=== PATIENT | female | born 1995 | race Asian ===

== ENCOUNTER 2021-12-10 22:44 | Emergency (ER) | payer OTHER ==
[~2021-12-10] VITALS: Ht 149.9 cm; Wt 52.7 kg
[2021-12-10] MEDS ORDERED: RIFA30CA PO (22:57)
[2021-12-10 23:40] LABS: HEMATOCRIT 38.1 % (36.0-47.0); HEMOGLOBIN 12.6 g/dl (12.0-15.5); MEAN CORPUSCULAR HEMOGLOBIN 31.1 pg (27.0-33.0); MEAN CORPUSCULAR HGB CONC 33.1 g/dl (32.0-36.5); MEAN CORPUSCULAR VOLUME 94.1 fl (80.0-96.0); PLATELET COUNT, AUTOMATED 338 10^3/uL (150-450); RED BLOOD COUNT 4.05 10^6/uL (4.00-5.40)
[2021-12-11 00:07] LABS: HCG, SERUM QUALITATIVE NEGATIVE (NEGATIVE)
[2021-12-11 00:08] LABS: AMPHETAMINES LEVEL URINE NEGATIVE (NEGATIVE); BARBITURATES URINE NEGATIVE (NEGATIVE); BENZODIAZEPINES URINE NEGATIVE (NEGATIVE); CANNABINOIDS URINE NEGATIVE (NEGATIVE); COCAINE METABOLITE URINE NEGATIVE (NEGATIVE); METHADONE URINE NEGATIVE (NEGATIVE); OPIATES URINE NEGATIVE (NEGATIVE); PHENCYCLIDINE URINE NEGATIVE (NEGATIVE)
[2021-12-11 00:12] LABS: RSV AMPLIFICATION NEGATIVE (NEGATIVE)
[2021-12-11 00:17] LABS: ACETAMINOPHEN LEVEL < 2.0 UG/ML (10.0-30.0); ALBUMIN 3.9 GM/DL (3.2-5.2); ALT/SGPT 24 U/L (12-78); BILIRUBIN,DIRECT 0.2 MG/DL (0.0-0.2); BILIRUBIN,TOTAL 0.2 MG/DL (0.2-1.0); BLOOD UREA NITROGEN 8 MG/DL (7-18); CALCIUM LEVEL 8.2 MG/DL (8.5-10.1); CARBON DIOXIDE LEVEL 30 MEQ/L (21-32); CHLORIDE LEVEL 103 MEQ/L (98-107); CREATININE FOR GFR 0.53 MG/DL (0.55-1.30); ETHYL ALCOHOL (ETHANOL) 0.206 % (0.000-0.010); GLOMERULAR FILTRATION RATE > 60.0 (>60); GLUCOSE, FASTING 102 MG/DL (70-100); POTASSIUM SERUM 3.4 MEQ/L (3.5-5.1); SALICYLATE LEVEL < 1.7 MG/DL (5.0-30.0); SODIUM LEVEL 137 MEQ/L (136-145); THYROID STIMULATING HORMONE 0.991 uIU/ML (0.358-3.740); TOTAL PROTEIN 6.8 GM/DL (6.4-8.2)
[2021-12-11 10:47] VITALS: BP 146/92
== END 2021-12-11 10:48 | disposition home or self-care (01) ==
LOC: M ED 22:44
DX: F10.120 Alcohol abuse with intoxication, uncomplicated (principal); R45.851 Suicidal ideations

== ENCOUNTER 2022-03-24 15:28 | Emergency (ER) | payer OTHER ==
[~2022-03-24] VITALS: Ht 149.9 cm; Wt 59.4 kg
[~2022-03-24 15:28] MED LIST: RIFA30CA PO
[2022-03-24 17:47] VITALS: BP 157/99
== END 2022-03-24 17:48 | disposition home or self-care (01) ==
LOC: M ED 15:28
DX: B34.9 Viral infection, unspecified (principal); R07.89 Other chest pain; M94.0 Chondrocostal junction syndrome [Tietze]; R05.9 Cough, unspecified; M79.10 Myalgia, unspecified site; Z20.822 Contact with and (suspected) exposure to COVID-19; K57.92 Diverticulitis of intestine, part unspecified, without perforation or abscess without bleeding

== ENCOUNTER 2022-05-23 07:56 | Emergency (ER) | payer OTHER ==
[~2022-05-23] VITALS: Ht 149.9 cm; Wt 62.1 kg
[2022-05-23] MEDS ORDERED: BISM262O49 (08:01)
[2022-05-23 11:41] LABS: BASO # 0.1 10^3/uL (0.0-0.2); BASO % 0.5 % (0.0-1.0); EOS # 0.2 10^3/uL (0.0-0.5); EOS % 1.7 % (0.0-3.0); HEMATOCRIT 39.2 % (36.0-47.0); HEMOGLOBIN 13.4 g/dl (12.0-15.5); LYMPH # 2.1 10^3/uL (1.5-5.0); MEAN CORPUSCULAR HEMOGLOBIN 31.2 pg (27.0-33.0); MEAN CORPUSCULAR HGB CONC 34.2 g/dl (32.0-36.5); MEAN CORPUSCULAR VOLUME 91.4 fl (80.0-96.0); MONO # 0.7 10^3/uL (0.0-0.8); MONO % 6.1 % (2.0-8.0); NEUTROPHILS # 8.4 10^3/uL (1.5-8.5); NEUTROPHILS % 72.8 % (36.0-66.0); PLATELET COUNT, AUTOMATED 313 10^3/uL (150-450); RED BLOOD COUNT 4.29 10^6/uL (4.00-5.40); WHITE BLOOD COUNT 11.6 10^3/uL (4.0-10.0)
[2022-05-23 12:33] LABS: ALBUMIN 3.7 GM/DL (3.2-5.2); ALT/SGPT 19 U/L (12-78); BILIRUBIN,DIRECT 0.2 MG/DL (0.0-0.2); BILIRUBIN,TOTAL 0.2 MG/DL (0.2-1.0); BLOOD UREA NITROGEN 9 MG/DL (7-18); CALCIUM LEVEL 9.6 MG/DL (8.5-10.1); CARBON DIOXIDE LEVEL 25 MEQ/L (21-32); CHLORIDE LEVEL 102 MEQ/L (98-107); CREATININE FOR GFR 0.44 MG/DL (0.55-1.30); GLOMERULAR FILTRATION RATE > 60.0 (>60); GLUCOSE, FASTING 79 MG/DL (70-100); LIPASE 154 U/L (73-393); POTASSIUM SERUM 3.7 MEQ/L (3.5-5.1); SODIUM LEVEL 133 MEQ/L (136-145); TOTAL PROTEIN 6.9 GM/DL (6.4-8.2)
[2022-05-23 13:19] LABS: GC DNA AMPLIFICATION NEGATIVE (NEGATIVE)
[2022-05-23 13:48] VITALS: BP 138/93
== END 2022-05-23 13:52 | disposition home or self-care (01) ==
LOC: M ED 07:56
DX: O26.891 Other specified pregnancy related conditions, first trimester (principal); R10.2 Pelvic and perineal pain; Z3A.11 11 weeks gestation of pregnancy; Z79.899 Other long term (current) drug therapy

== ENCOUNTER 2022-11-13 09:12 | Outpatient (CLI) | payer OTHER ==
[2022-11-13] VITALS (10 sets, daily range): BP systolic 117–151; BP diastolic 62–101
[~2022-11-13] VITALS: Ht 149.9 cm; Wt 77.8 kg
[~2022-11-13 09:12] MED LIST changes: +BISM262O49
[2022-11-13 09:56] LABS: HEMATOCRIT 36.6 % (36.0-47.0); HEMOGLOBIN 12.1 g/dl (12.0-15.5); MEAN CORPUSCULAR HEMOGLOBIN 28.8 pg (27.0-33.0); MEAN CORPUSCULAR HGB CONC 33.1 g/dl (32.0-36.5); MEAN CORPUSCULAR VOLUME 87.1 fl (80.0-96.0); PLATELET COUNT, AUTOMATED 393 10^3/uL (150-450); WHITE BLOOD COUNT 12.3 10^3/uL (4.0-10.0)
[2022-11-13] MEDS ORDERED: [UNRECOGNIZED DRUG - CODE] PO (09:58)
[2022-11-13] MEDS ORDERED: TUMS750C5 PO (09:58)
[2022-11-13] MEDS ORDERED: PRENTAB9 PO (09:58)
[2022-11-13] MEDS ORDERED: ACET-897 PO (09:58)
[2022-11-13] MEDS ORDERED: [UNRECOGNIZED DRUG - OTHER] (09:58)
[2022-11-13] MEDS ORDERED: [UNRECOGNIZED DRUG - OTHER] PO (09:58)
[2022-11-13] MEDS ORDERED: MUCI1TAB16 PO (09:58)
[2022-11-13] MEDS ORDERED: HOME MED LIST COMPLETE! XX SCH (10:00)
[2022-11-13] MEDS ORDERED: ACETAMINOPHEN 500 MG TAB PO PRN (10:20)
[2022-11-13 10:24] LABS: URIC ACID 3.5 MG/DL (3.1-7.8)
[2022-11-13 10:27] LABS: LDH LACTATE DEHYDROGENASE 166 U/L (120-246)
[2022-11-13 10:28] LABS: ALT/SGPT 24 U/L (7.0-40); AST/SGOT 24 U/L (<34); BILIRUBIN,TOTAL 0.3 MG/DL (0.3-1.2); CREATININE FOR GFR 0.53 MG/DL (0.55-1.30); GLOMERULAR FILTRATION RATE > 60.0 (>60)
[2022-11-13 10:34] LABS: TOTAL PROTEIN,RANDOM URINE 24.4 MG/DL (0.0-14.0)
[2022-11-13 10:39] LABS: CREATININE,RANDOM URINE 153.5 MG/DL
== END 2022-11-13 13:32 | disposition home or self-care (01) ==
LOC: M LDO 09:12
PROVIDERS: ATTEND Registered Nurse
DX: O98.513 Other viral diseases complicating pregnancy, third trimester (principal); U07.1 COVID-19; Z3A.35 35 weeks gestation of pregnancy
CPT/HCPCS: 36415; 59025; 82247; 82565; 82570; 83615; 84156; 84450; 84460; 84550; 85027; 87635; G0463

== ENCOUNTER 2022-12-11 12:29 | Inpatient (IN) | payer OTHER ==
[~2022-12-11] VITALS: Ht 149.9 cm; Wt 79.4 kg
[2022-12-11] VITALS (14 sets, daily range): BP systolic 121–183; BP diastolic 72–100
[~2022-12-11 12:29] MED LIST changes: +ACET-897 PO; +MUCI1TAB16 PO; +PRENTAB9 PO; +TUMS750C5 PO; +[UNRECOGNIZED DRUG - CODE] PO; +[UNRECOGNIZED DRUG - OTHER]; +[UNRECOGNIZED DRUG - OTHER] PO
[2022-12-11] MEDS ORDERED: OXYTOCIN DRIP 30 UNITS in IV 1 EA IV PRN (13:15)
[2022-12-11] MEDS ORDERED: LACTATED RINGER'S 1000 ML IV PRN (13:15)
[2022-12-11] MEDS ORDERED: LIDOCAINE 1% MDV 20ML VIAL INFIL PRN (13:15)
[2022-12-11] MEDS ORDERED: CARBOPROST TROMETHAMINE 250 MCG/ML AMP IM PRN (13:15)
[2022-12-11] MEDS ORDERED: TRANEXAMIC ACID INJection 1,000 MG in NS 100 ML IV PRN (13:15)
[2022-12-11] MEDS ORDERED: HOME MED LIST COMPLETE! XX SCH (13:20)
[2022-12-11 13:49] LABS: HEMATOCRIT 37.9 % (36.0-47.0); HEMOGLOBIN 12.3 g/dl (12.0-15.5); MEAN CORPUSCULAR HEMOGLOBIN 29.1 pg (27.0-33.0); MEAN CORPUSCULAR HGB CONC 32.5 g/dl (32.0-36.5); MEAN CORPUSCULAR VOLUME 89.8 fl (80.0-96.0); PLATELET COUNT, AUTOMATED 372 10^3/uL (150-450); RED BLOOD COUNT 4.22 10^6/uL (4.00-5.40); WHITE BLOOD COUNT 15.1 10^3/uL (4.0-10.0)
[2022-12-11 14:06] LABS: TOTAL PROTEIN,RANDOM URINE 56.5 MG/DL (0.0-14.0)
[2022-12-11 14:09] LABS: URIC ACID 3.6 MG/DL (3.1-7.8)
[2022-12-11 14:11] LABS: CREATININE,RANDOM URINE 160.9 MG/DL; LDH LACTATE DEHYDROGENASE 210 U/L (120-246)
[2022-12-11] MEDS: miSOPROStol 50MCG 1/2 TABLET PO SCH ×2 (17:14→20:25)
[2022-12-11 19:43] LABS: ALKALINE PHOSPHATASE 179 U/L (46-116); ALT/SGPT 16 U/L (7.0-40); AST/SGOT 21 U/L (<34); BILIRUBIN,TOTAL 0.4 MG/DL (0.3-1.2); BLOOD UREA NITROGEN 8 MG/DL (9-23); CALCIUM LEVEL 9.2 MG/DL (8.5-10.1); CARBON DIOXIDE LEVEL 21 MMOL/L (20-31); CHLORIDE LEVEL 106 MMOL/L (98-107); CREATININE FOR GFR 0.39 MG/DL (0.55-1.30); GLOMERULAR FILTRATION RATE > 60.0 (>60); GLUCOSE, FASTING 89 MG/DL (60-100); POTASSIUM SERUM 3.9 MMOL/L (3.5-5.1); SODIUM LEVEL 138 MMOL/L (136-145)
[2022-12-11 20:06] LABS: TOTAL PROTEIN 6.3 G/DL (5.7-8.2)
[2022-12-11] MEDS ORDERED: PROMETHAZINE 25MG/ML 1ML VIAL IV ONE (21:15)
[2022-12-11] MEDS ORDERED: BUTORPHANOL 2 MG/ML 1ML VIAL IV ONE (21:15)
[2022-12-11] MEDS: LR 1,000 ML IV SCH (21:46)
[2022-12-11] MEDS ORDERED: OXYTOCIN DRIP 30 UNITS in IV 1 EA IV SCH (23:10)
[2022-12-12] VITALS (70 sets, daily range): BP systolic 87–158; BP diastolic 45–96
[2022-12-12] MEDS ORDERED: ONDANSETRON 4MG 2ML VIAL IV PRN (03:40)
[2022-12-12] MEDS ORDERED: diphenhydrAMINE 50MG/ML VIAL IV PRN (03:40)
[2022-12-12] MEDS ORDERED: ePHEDrine SULFATE 25 MG/5 ML(5MG/ML) SYRINGE IVP PRN (03:40)
[2022-12-12] MEDS ORDERED: EPIDURAL/PCA KEYS XX PRN (03:40)
[2022-12-12] MEDS ORDERED: FENTANYL/ROPIVACAINE/NACL BAG 100 ML EPIDURAL SCH (03:40)
[2022-12-12] MEDS ORDERED: LR 500 ML IV PRN (03:40)
[2022-12-12] MEDS ORDERED: NALOXONE INJ 0.4MG/1ML VIAL IV PRN (03:40)
[2022-12-12] MEDS: LR 1,000 ML IV SCH ×6 (05:15→15:10)
[2022-12-12] MEDS ORDERED: PHENYLephrine 500MCG 5ML (100MCG/ML) SYRINGE IV PRN (05:55)
[2022-12-12] MEDS ORDERED: D5W/0.45% SODIUM CHLORIDE 500 ML IV ONE (06:05)
[2022-12-12] MEDS: ACETAMINOPHEN 500 MG TAB PO PRN ×2 (08:23→14:43)
[2022-12-12] MEDS ORDERED: MAG Sulf (L&D) 4 GM/100 ML 4 GM in IV 1 EA IV ONE (09:35)
[2022-12-12] MEDS: MAG Sulf (OBGYN) 20GM/500ML 20,000 MG in IV 1 EA IV SCH ×2 (09:58→19:46)
[2022-12-12] MEDS ORDERED: RHOGAM 300MCG (1500IU) INJ IM SCH (14:45)
[2022-12-12] MEDS ORDERED: OXYTOCIN DRIP 30 UNITS in IV 1 EA IV SCH (14:45)
[2022-12-12] MEDS ORDERED: DIBUCAINE 1% OINTMENT 30GM TOP PRN (14:45)
[2022-12-12] MEDS: IBUPROFEN 800 MG TAB PO PRN (18:45)
[2022-12-13 02:00] VITALS: BP 100/59
[2022-12-13 05:53] VITALS: BP 115/71
[2022-12-13] MEDS: DOCUSATE SODIUM 100MG CAPSULE PO PRN (06:41)
[2022-12-13] MEDS: PRENATAL VITAMINS CHEWABLE TABLET PO SCH (08:44)
[2022-12-13] MEDS: ACETAMINOPHEN 500 MG TAB PO PRN ×2 (11:53→18:50)
[2022-12-13 14:00] VITALS: BP 130/84
[2022-12-13 18:00] VITALS: BP 123/83
[2022-12-13] MEDS: IBUPROFEN 800 MG TAB PO PRN (22:19)
[2022-12-13 22:24] VITALS: BP 138/84
[2022-12-14 02:41] VITALS: BP 115/61
[2022-12-14] MEDS: ACETAMINOPHEN 500 MG TAB PO PRN ×2 (05:18→11:17)
[2022-12-14 06:26] VITALS: BP 124/78
[2022-12-14] MEDS: DOCUSATE SODIUM 100MG CAPSULE PO PRN (08:16)
[2022-12-14] MEDS: PRENATAL VITAMINS CHEWABLE TABLET PO SCH (08:16)
[2022-12-14] MEDS ORDERED: ACET-683 PO (08:21)
[2022-12-14] MEDS ORDERED: COLA100C5 PO (08:21)
[2022-12-14] MEDS ORDERED: IBUP80TA PO (08:21)
[2022-12-14] MEDS ORDERED: MEASLES,MUMPS,RUBELLA VACCINE INJ (MMR-II) SC.IMMUN ONE (09:00)
== END 2022-12-14 12:55 | disposition home or self-care (01) | DRG 807 ==
LOC: M LDI 12:29 → M OBS 12-12 17:19
PROVIDERS: ADMIT Registered Nurse; ATTEND Registered Nurse
PROC: 3E0P7GC Introduction of Other Therapeutic Substance into Female Reproductive, Via Natural or Artificial Opening (ICD-10-PCS; 2022-12-11)
PROC: 10E0XZZ Delivery of Products of Conception, External Approach (ICD-10-PCS; principal; 2022-12-12)
DX: O14.14 Severe pre-eclampsia complicating childbirth (principal); Z37.0 Single live birth; Z3A.39 39 weeks gestation of pregnancy; O69.81X0 Labor and delivery complicated by cord around neck, without compression, not applicable or unspecified; O32.6XX0 Maternal care for compound presentation, not applicable or unspecified

== ENCOUNTER → 2023-06-22 | Outpatient (CLI) | payer OTHER ==
[~2023-06-22] MED LIST changes: +ACET-683 PO; +COLA100C5 PO; +IBUP80TA PO
== END ==
LOC: M PLAIMG 13:07
PROVIDERS: ATTEND Nurse Practitioner Family
DX: M54.2 Cervicalgia (principal); M25.571 Pain in right ankle and joints of right foot; M25.561 Pain in right knee; M25.562 Pain in left knee; R51.9 Headache, unspecified; R07.89 Other chest pain; M77.30 Calcaneal spur, unspecified foot

== ENCOUNTER → 2023-08-31 | Outpatient (CLI) | payer OTHER | LOC: M CARPUL 10:58 | PROVIDERS: ATTEND Physician Assistant | DX: R94.2 Abnormal results of pulmonary function studies (principal); R06.02 Shortness of breath; R05.9 Cough, unspecified ==

== ENCOUNTER → 2024-09-19 | Outpatient (CLI) | payer OTHER | LOC: M PLAIMG 15:35 | PROVIDERS: ATTEND Chiropractor | DX: M54.59 Other low back pain (principal) ==

== ENCOUNTER → 2024-09-27 | Outpatient (CLI) | payer OTHER ==
[~2024-09-27] MED LIST changes: +METHACHOLINE KIT (6 VIAL.NEB PREMIX) INH ONE
== END ==
LOC: M CARPUL 13:40
PROVIDERS: ATTEND Internal Medicine Pulmonary Disease
DX: R06.00 Dyspnea, unspecified (principal)
CPT/HCPCS: 94070; 95070; J7674

== ENCOUNTER → 2024-10-17 | Outpatient (CLI) | payer OTHER ==
[~2024-10-17] MED LIST changes: -METHACHOLINE KIT (6 VIAL.NEB PREMIX) INH ONE
== END ==
LOC: M SLEEP 20:00
PROVIDERS: ATTEND Registered Nurse
DX: G47.33 Obstructive sleep apnea (adult) (pediatric) (principal)